=== PATIENT | male | born 1995 | race Caucasian/White ===

== ENCOUNTER 2019-04-19 20:31 | Inpatient (IN) | payer OTHER ==
[~2019-04-19] VITALS: Ht 165.1 cm; Wt 43.0 kg
[2019-04-19 21:14] LABS: HEMATOCRIT 41.1 % (42.0-52.0); HEMOGLOBIN 14.3 g/dl (13.5-17.5); MEAN CORPUSCULAR HEMOGLOBIN 29.9 pg (27.0-33.0); MEAN CORPUSCULAR HGB CONC 34.8 g/dl (32.0-36.5); PLATELET COUNT, AUTOMATED 266 10^3/uL (150-450); RED BLOOD COUNT 4.78 10^6/uL (4.30-6.10); WHITE BLOOD COUNT 7.8 10^3/uL (4.0-10.0)
[2019-04-19 21:56] LABS: ACETAMINOPHEN LEVEL < 2.0 UG/ML (10.0-30.0); ALBUMIN 3.7 GM/DL (3.2-5.2); ALT/SGPT 19 U/L (12-78); BILIRUBIN,DIRECT 0.2 MG/DL (0.0-0.2); BILIRUBIN,TOTAL 0.6 MG/DL (0.2-1.0); BLOOD UREA NITROGEN 17 MG/DL (7-18); CARBON DIOXIDE LEVEL 30 MEQ/L (21-32); CHLORIDE LEVEL 105 MEQ/L (98-107); CREATININE FOR GFR 0.98 MG/DL (0.70-1.30); ETHYL ALCOHOL (ETHANOL) < 0.003 % (0.000-0.010); GLOMERULAR FILTRATION RATE > 60.0 (>60); GLUCOSE, FASTING 106 MG/DL (70-100); POTASSIUM SERUM 3.4 MEQ/L (3.5-5.1); SODIUM LEVEL 139 MEQ/L (136-145); THYROID STIMULATING HORMONE 0.824 uIU/ML (0.358-3.740); TOTAL PROTEIN 7.4 GM/DL (6.4-8.2)
[2019-04-19 22:31] LABS: AMPHETAMINES LEVEL URINE NEGATIVE (NEGATIVE); BARBITURATES URINE NEGATIVE (NEGATIVE); BENZODIAZEPINES URINE NEGATIVE (NEGATIVE); CANNABINOIDS URINE POSITIVE (NEGATIVE); COCAINE METABOLITE URINE NEGATIVE (NEGATIVE); METHADONE URINE NEGATIVE (NEGATIVE); OPIATES URINE NEGATIVE (NEGATIVE); PHENCYCLIDINE URINE NEGATIVE (NEGATIVE)
[2019-04-19] MEDS ORDERED: ACETAMINOPHEN TAB 650MG DOSE (2X325MG) PO PRN (23:30)
[2019-04-19] MEDS ORDERED: MOM 30ML SUSPENSION UDC PO PRN (23:30)
[2019-04-19] MEDS ORDERED: MAALOX 30 ML SUSP *UDC PO PRN (23:30)
[2019-04-19 23:56] VITALS: BP 116/55
[2019-04-20 06:51] VITALS: BP 124/76
[2019-04-20] MEDS: NICOTINE 21MG/24HR 1 EA TRANSDERMAL TD SCH (09:01)
[2019-04-20] MEDS: OSELTAMIVIR PHOSPHATE 75 MG CAP (TAMIFLU) PO SCH (13:23)
--- NOTE | 2019-04-20 14:21 | HPEPDOC ---
General Date of Admission Apr 19, 2019 at 23:19 Date of Service: Apr 19, 2019 Chief Complaint The patient is a 24-year-old male admitted with a reason for visit of Unspecified Depressive D/O. 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 i am seeing the patient for medical history and physical. He says he missed his flu shot this year so would like a prophylaxis. Denies any cough or phlegm, denies any fever or chills, denies any sorethroat. Home Medications No Active Prescriptions or Reported Meds Allergies Coded Allergies: No Known Allergies (Unverified , 04/19/19) Past Medical History Medical History none Surgical History wisdom tooth removal Family History no medical history discussed with the patient. Social History * Smoker: current smoker Alcohol: occationally Drugs: marijuana A-FIB/CHADSVASC A-FIB History Current/History of A-Fib/PAF?: No Review of Systems Constitutional: Denies: Chills, Fever, Night Sweats Eyes: Denies: Pain, Vision change ENT: Denies: Head Aches, Ear Pain, Dysphagia Skin: Denies: Rash, Lesions, Breakdown Pulmonary: Denies: Dyspnea, Cough Cardiovascular: Denies: Chest Pain, Palpitations, Orthopnea, Paroxysmal Noc. Dyspnea, Lt Headedness Gastrointestinal: Denies: Nausea, Vomiting, Abdominal Pain, Diarrhea Genitourinary: Denies: Dysuria, Frequency, Incontinence, Retention Hematologic: Denies: Bruising, Bleeding Excessively Physical Examination General Exam: Positive: Alert, Cooperative, No Acute Distress, Other (appears malnourished and thin with very small muscle mass. ) Eye Exam: Positive: PERRLA, Conjunctiva & lids normal, EOMI; Negative: Sclera icteric ENT Exam: Positive: Atraumatic, Mucous membr. 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); Negative: Clubbing, Cyanosis, Edema Skin Exam: Positive: Nl turgor and temperature; Negative: Breakdown, Lesion Neuro Exam: Positive: Normal Gait, Normal Speech, Cranial Nerves 3-12 NL, Reflexes 2+ Vital Signs Vital Signs Date Time Temp Pulse Resp B/P (MAP) Pulse Ox O2 Delivery O2 Flow Rate FiO2 04/20/19 11:10 Room Air 04/20/19 06:51 98.2 66 16 124/76 (92) 04/19/19 20:32 99 Laboratory Data Labs 24H Laboratory Tests 2 04/19/19 20:58: Nucleated Red Blood Cells % (auto) 0.0, Anion Gap 4L, Glomerular Filtration Rate > 60.0, Calcium Level 9.0, Total Bilirubin 0.6, Direct Bilirubin 0.2, Aspartate Amino Transf (AST/SGOT) 15, Alanine Aminotransferase (ALT/SGPT) 19, Alkaline Phosphatase 66, Total Protein 7.4, Albumin 3.7, Albumin/Globulin Ratio 1.00, Thyroid Stimulating Hormone (TSH) 0.824, Salicylates Level 2.0L, Acetaminophen Level < 2.0L, Ethyl Alcohol Level < 0.003 04/19/19 21:49: Urine Opiates Screen NEGATIVE, Urine Methadone Screen NEGATIVE, Urine Barbiturates Screen NEGATIVE, Urine Phencyclidine Screen NEGATIVE, Urine Amphetamines Screen NEGATIVE, Urine Benzodiazepines Screen NEGATIVE, Urine Cocaine Metabolite Screen NEGATIVE, Urine Cannabinoids Screen POSITIVEH CBC/BMP Laboratory Tests 04/19/19 20:58 Assessment/Plan 24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 I am seeing the patient for medical history and physical. Psych as per psychiatry Severe Malnutrition with BMI of 15.9 and wasting of small muscles and bitemporal fat loss though albumin remains normal. consider guest services manager referral Flu prophylaxis will start on tamiflu 75 mg daily Plan / VTE VTE Prophylaxis Ordered?: No (freely ambulatory) CRYSTAL RUBIN MD Apr 20, 2019 14:21
[2019-04-20 16:00] VITALS: BP 132/89
[2019-04-20] MEDS ORDERED: LORazepam 1 MG TAB PO ONE (18:30)
--- NOTE | 2019-04-20 20:50 | MHHPE ---
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 He was having suicidal ideations with a plan to shoot himself. The patient said he was going to drive to his friend's house in [place] and shoot himself. His main trigger is that his girlfriend for the past three months broke up with him and she is going to abort his baby tomorrow. The patient states that he and his girlfriend are still seeing each other, but deciding what they were going to do about their relationship, but yesterday she told him that after the she did not want to continue the relationship. He said that is when he started to have suicidal thoughts. He says he really was not suicidal, stating "I was just talking." Apparently, he did write a suicidal letter to his mom. He states that he was feeling depressed and hopeless and helpless, but he states that this had just started since the girlfriend told him that she was breaking up with him. He says in the past he did go to [facility] another time and he was seen for 2-3 months and that was because of another girlfriend that had broken up with him at the time. I am not eliciting any hypomanic or manic-like symptoms, or posttraumatic stress disorder (PTSD), or obsessive compulsive disorder (OCD) symptoms in this patient, or panic-like symptoms. PAST PSYCHIATRIC HISTORY: The patient has never been admitted to a psychiatric unit before. Again, he did have a prior episode of depression and did some outpatient treatment at [facility]. He has never actually made any suicidal attempt. FAMILY HISTORY: He says that he is not aware of any psychiatric problems or suicides in his family. MEDICAL HISTORY: He denies any medical problems. ABUSE HISTORY: He denies any history of any physical or sexual abuse. SUBSTANCE ABUSE: He says that he never had trouble with alcohol but he uses cannabis daily. He says as a matter of fact he has been doing that on purpose because he has wanted to get discharged from the [employer] and apparently this is what will be happening soon. REVIEW OF SYSTEMS: VITAL SIGNS: Blood pressure 124/76, pulse 66, respirations 16. APPEARANCE: He did not appear to be in any apparent distress. NEUROMUSCULAR SYSTEM: The patient's gait is normal and there is no involuntary movement. All other systems appear to be negative. MENTAL STATUS EXAMINATION: This patient is alert and oriented times three. Eye contact is fair. Psychomotor activity is decreased. He is verbally spontaneous. There is no formal thought disorder noted. He says his mood is depressed. Affect is restricted but appropriate to mood. He is not psychotic. He denies suicidal ideations today or homicidal ideations. Concentration is fair. Memory intact. Insight and judgment is poor. DIAGNOSES: 1. Adjustment disorder with depressed mood. 2. Cannabis use disorder. At this point, we will continue to monitor the patient for depressive symptomatology. It appears to be reactive to his situational problems with his girlfriend. We will continue to evaluate. At this point, I do not think that treatment with medications is indicated. We will continue to monitor to confirm continued resolution of suicidal ideation.
[2019-04-21 06:48] VITALS: BP 124/84
[2019-04-21] MEDS ORDERED: INFLUENZA QUADRIVALENT PF VACCINE 0.5ML SYRINGE (90686) IM ONE (09:00)
--- NOTE | 2019-04-21 09:18 | MHIPNPDOC ---
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 The patient said he was going to drive to his friend's house in [place] and shoot himself. His main trigger is that his girlfriend for the past three months broke up with him and she is going to abort his baby tomorrow Interval History Narrative: Patient is met withing the group setting. Engages and talks about his situation reporting that his depression is improving. Affective: Patient reports improved depression, less situational worries. Psychotic: Denies any symptoms at this time. Anxiety: Reports some anxiety about relational stuff, namely around his girlfriend. Eating and sleeping behaviors: Within normal limits. Group Attendance: Attends at times. Medication Side effects: See ROS below Behavioral problems/significant events overnight: None reported. Staff Report: Generally engages, no behavioral problems. Review Of Systems Denies any physical concerns at this time, not on any current medication. Psychotherapy None on this visit. Vital Signs Reviewed. Mental Status Examination General: Well dressed with good hygiene Speech: Spontaneous and fluid Thought processes: Linear and logical MSK: Smooth and coordinated gait, no signs of tremors or involuntary orofacial movements Thought content: Future orientated Abstract reasoning, and computation: Intact Description of associations: Intact Description of abnormal or psychotic thoughts: Denies any suicidal or homicidal ideation. Denies any auditory or visual hallucinations. Does not appear to be responding to internal stimuli. Does not appear to be endorsing any bizarre or paranoid ideation. Judgment: fair Insight: fair Orientation: Alert and orientated 3 Cognition: Grossly normal Recent and remote memory: Intact Attention span and concentration: Intact Fund of knowledge: Adequate Mood: "okay" Affect: Euthymic with a full range Diagnoses Adjustment disorder with disruption of mood and conduct. Cannabis use disorder, unspecified. Assessment and Plan Adjustment disorder: Patient has been discussed with above medications, still not interested, prefers therapy. Potential discharge tomorrow if continues to improve. Cannabis use disorder: Recommend outpatient addiction. Disposition Discharge tomorrow to chain of command at patient request if continues to be stable. Time Spent 15 minutes Vital Signs Vital Signs Date Time Temp Pulse Resp B/P (MAP) Pulse Ox O2 Delivery O2 Flow Rate FiO2 04/21/19 08:07 Room Air 04/21/19 06:48 97.9 80 16 124/84 (97) 04/19/19 20:32 99 Current Medications Current Medications Medications (Trade) Dose Ordered Sig/Tiffanie Route PRN Reason Start Time Stop Time Status Last Admin Dose Admin Acetaminophen (Tylenol Tab) 650 mg Q6HP PRN PO HEADACHE or DISCOMFORT 04/19/19 23:30 Al Hydrox/Mg Hydrox/Simethicone (Mylanta) 30 ml Q4HP PRN PO HEARTBURN/INDIGESTION 04/19/19 23:30 Home Med (Med Rec Complete!) ASDIRECTED XX 04/19/19 23:30 04/19/19 23:20 DC Magnesium Hydroxide (Milk Of Magnesia) 30 ml DAILYPRN PRN PO CONSTIPATION 04/19/19 23:30 Nicotine (Nicoderm Cq 21mg) 1 patch DAILY TD 04/20/19 09:00 04/20/19 09:01 Oseltamivir Phosphate (Tamiflu) 75 mg DAILY PO 04/20/19 12:45 04/20/19 13:23 Trazodone HCl (Desyrel) 50 mg QHSP PRN PO INSOMNIA 04/19/19 23:30 Allergies Coded Allergies: No Known Allergies (Unverified , 04/19/19) CARLIE PATHAK DO Apr 21, 2019 09:18
[2019-04-21] MEDS: OSELTAMIVIR PHOSPHATE 75 MG CAP (TAMIFLU) PO SCH (10:19)
[2019-04-21] MEDS: NICOTINE 21MG/24HR 1 EA TRANSDERMAL TD SCH (10:19)
[2019-04-21 16:00] VITALS: BP 122/72
[2019-04-21] MEDS: traZODone 50 MG TAB PO PRN (21:42)
[2019-04-22 06:33] VITALS: BP 117/68
--- NOTE | 2019-04-22 08:44 | MHIPNPDOC ---
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 The patient said he was going to drive to his friend's house in [place] and shoot himself. His main trigger is that his girlfriend for the past three months broke up with him and she is going to abort his baby tomorrow Interval History Narrative: The patient is met within the group setting. He has been calling his parents making threats about suicide, although emphatically denies them to us, while jovially smiling. Affective: The patient denies any depressive symptoms at this time. Psychotic: Denies any symptoms at this time. Anxiety: Reports some anxiety about relational stuff, namely around his girlfriend. Eating and sleeping behaviors: Within normal limits. Group Attendance: Attends at times. Medication Side effects: See ROS below Behavioral problems/significant events overnight: As above, patient generally gets into arguments with family and had reportedly made statements. Staff Report: Generally engages, although is uninterested in treatment. Review Of Systems Denies any physical concerns at this time, not on any current medication. Psychotherapy None on this visit. Vital Signs Reviewed. Mental Status Examination General: Well dressed with good hygiene Speech: Spontaneous and fluid Thought processes: Linear and logical MSK: Smooth and coordinated gait, no signs of tremors or involuntary orofacial movements Thought content: Future orientated Abstract reasoning, and computation: Intact Description of associations: Intact Description of abnormal or psychotic thoughts: Denies any suicidal or homicidal ideation. Denies any auditory or visual hallucinations. Does not appear to be responding to internal stimuli. Does not appear to be endorsing any bizarre or paranoid ideation. Judgment: fair Insight: fair Orientation: Alert and orientated 3 Cognition: Grossly normal Recent and remote memory: Intact Attention span and concentration: Intact Fund of knowledge: Adequate Mood: "okay" Affect: Euthymic with a full range Diagnoses Adjustment disorder with disruption of mood and conduct. Cannabis use disorder, unspecified. Assessment and Plan Adjustment disorder: Patient prefers therapy only. Cluster B personality traits: Likely engages in superficial threatening behavior, as staff has overheard some of his calls, discussed with the patient about need to not engage in this unless he is actually feeling this way. Patient emphatically denies suicidality, although appears to be engaged in this whenever he is upset with family members. We will likely recommend that he be continued in the [place] on observation once he leaves. Disposition The patient will be discharged to [facility] once [facility], he will likely end up with several more days of observation, which will be ideal in the setting, although we are certain that this is superficial attention seeking behavior for the patient, further observation will let us understand the situation better. Time Spent 15 minutes. Vital Signs Vital Signs Date Time Temp Pulse Resp B/P (MAP) Pulse Ox O2 Delivery O2 Flow Rate FiO2 04/22/19 06:33 97.6 75 16 117/68 (84) 04/21/19 08:07 Room Air 04/19/19 20:32 99 Current Medications Current Medications Medications (Trade) Dose Ordered Sig/Tiffanie Route PRN Reason Start Time Stop Time Status Last Admin Dose Admin Acetaminophen (Tylenol Tab) 650 mg Q6HP PRN PO HEADACHE or DISCOMFORT 04/19/19 23:30 Al Hydrox/Mg Hydrox/Simethicone (Mylanta) 30 ml Q4HP PRN PO HEARTBURN/INDIGESTION 04/19/19 23:30 Home Med (Med Rec Complete!) ASDIRECTED XX 04/19/19 23:30 04/19/19 23:20 DC Magnesium Hydroxide (Milk Of Magnesia) 30 ml DAILYPRN PRN PO CONSTIPATION 04/19/19 23:30 Nicotine (Nicoderm Cq 21mg) 1 patch DAILY TD 04/20/19 09:00 04/21/19 10:19 Oseltamivir Phosphate (Tamiflu) 75 mg DAILY PO 04/20/19 12:45 04/21/19 10:19 Trazodone HCl (Desyrel) 50 mg QHSP PRN PO INSOMNIA 04/19/19 23:30 04/21/19 21:42 Allergies Coded Allergies: No Known Allergies (Unverified , 04/19/19) CARLIE PATHAK DO Apr 22, 2019 08:44
[2019-04-22] MEDS: OSELTAMIVIR PHOSPHATE 75 MG CAP (TAMIFLU) PO SCH (09:17)
[2019-04-22] MEDS: NICOTINE 21MG/24HR 1 EA TRANSDERMAL TD SCH (09:17)
[2019-04-22 17:54] VITALS: BP 137/86
[2019-04-22] MEDS ORDERED: LORazepam 1 MG TAB PO ONE (19:00)
[2019-04-22] MEDS: traZODone 50 MG TAB PO PRN (21:28)
[2019-04-23 06:22] VITALS: BP 110/54
[2019-04-23] MEDS: OSELTAMIVIR PHOSPHATE 75 MG CAP (TAMIFLU) PO SCH (08:34)
[2019-04-23] MEDS: NICOTINE 21MG/24HR 1 EA TRANSDERMAL TD SCH (08:36)
--- NOTE | 2019-04-23 09:12 | MHIPNPDOC ---
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 The patient said he was going to drive to his friend's house in [place] and shoot himself. His main trigger is that his girlfriend for the past three months broke up with him and she is going to abort his baby tomorrow Interval History Narrative: The patient is met with solo. He wishes to stay longer to "talk to more people" Affective: reports some low mood and mild depression Psychotic: Denies any symptoms at this time. Anxiety: Reports some anxiety about relational stuff, namely around his girlfriend. Eating and sleeping behaviors: Within normal limits. Group Attendance: Attends at times. Medication Side effects: See ROS below Behavioral problems/significant events overnight: none Staff Report: Generally engages, more interested in treatment Review Of Systems Denies any physical concerns at this time, not on any current medication. Psychotherapy None on this visit. Vital Signs Reviewed. Mental Status Examination General: Well dressed with good hygiene Speech: Spontaneous and fluid Thought processes: Linear and logical MSK: Smooth and coordinated gait, no signs of tremors or involuntary orofacial movements Thought content: Future orientated Abstract reasoning, and computation: Intact Description of associations: Intact Description of abnormal or psychotic thoughts: Denies any suicidal or homicidal ideation. Denies any auditory or visual hallucinations. Does not appear to be responding to internal stimuli. Does not appear to be endorsing any bizarre or paranoid ideation. Judgment: fair Insight: fair Orientation: Alert and orientated 3 Cognition: Grossly normal Recent and remote memory: Intact Attention span and concentration: Intact Fund of knowledge: Adequate Mood: "okay" Affect: Euthymic with a full range Diagnoses Adjustment disorder with disruption of mood and conduct. Cannabis use disorder, unspecified. Assessment and Plan Adjustment disorder: Patient prefers therapy only. Cluster B personality traits: Likely engages in superficial threatening behavior, as staff has overheard some of his calls, discussed with the patient about need to not engage in this unless he is actually feeling this way. Patient emphatically denies suicidality, although appears to be engaged in this whenever he is upset with family members. We will likely recommend that he be continued in the barracks on observation once he leaves. Disposition The patient will be discharged [facility], he will likely end up with several more days of observation, which will be ideal in the setting, although we are certain that this is superficial attention seeking behavior for the patient, further observation will let us understand the situation better. Time Spent 15 minutes. Vital Signs Vital Signs Date Time Temp Pulse Resp B/P (MAP) Pulse Ox O2 Delivery O2 Flow Rate FiO2 04/23/19 08:07 Room Air 04/23/19 06:22 97.9 59 18 110/54 (72) 04/19/19 20:32 99 Current Medications Current Medications Medications (Trade) Dose Ordered Sig/Tifafnie Route PRN Reason Start Time Stop Time Status Last Admin Dose Admin Acetaminophen (Tylenol Tab) 650 mg Q6HP PRN PO HEADACHE or DISCOMFORT 04/19/19 23:30 Al Hydrox/Mg Hydrox/Simethicone (Mylanta) 30 ml Q4HP PRN PO HEARTBURN/INDIGESTION 04/19/19 23:30 Home Med (Med Rec Complete!) ASDIRECTED XX 04/19/19 23:30 04/19/19 23:20 DC Magnesium Hydroxide (Milk Of Magnesia) 30 ml DAILYPRN PRN PO CONSTIPATION 04/19/19 23:30 Nicotine (Nicoderm Cq 21mg) 1 patch DAILY TD 04/20/19 09:00 04/23/19 08:36 Oseltamivir Phosphate (Tamiflu) 75 mg DAILY PO 04/20/19 12:45 04/23/19 08:34 Trazodone HCl (Desyrel) 50 mg QHSP PRN PO INSOMNIA 04/19/19 23:30 04/22/19 21:28 Allergies Coded Allergies: No Known Allergies (Unverified , 04/19/19) CARLIE PATHAK DO Apr 23, 2019 09:12
[2019-04-23 16:00] VITALS: BP 136/83
[2019-04-23] MEDS: traZODone 50 MG TAB PO PRN (20:17)
[2019-04-24 06:38] VITALS: BP 122/72
[2019-04-24] MEDS: NICOTINE 21MG/24HR 1 EA TRANSDERMAL TD SCH (08:29)
[2019-04-24] MEDS: OSELTAMIVIR PHOSPHATE 75 MG CAP (TAMIFLU) PO SCH (08:29)
[2019-04-24 16:13] VITALS: BP 139/81
[2019-04-24] MEDS: traZODone 50 MG TAB PO PRN (20:47)
[2019-04-25 06:35] VITALS: BP 122/67
[2019-04-25] MEDS: NICOTINE 21MG/24HR 1 EA TRANSDERMAL TD SCH (08:30)
[2019-04-25] MEDS: OSELTAMIVIR PHOSPHATE 75 MG CAP (TAMIFLU) PO SCH (08:30)
[2019-04-25] MEDS ORDERED: LORazepam 1 MG TAB PO ONE (15:15)
[2019-04-25 16:08] VITALS: BP 117/70
[2019-04-25] MEDS: traZODone 50 MG TAB PO PRN (20:11)
[2019-04-26 06:32] VITALS: BP 99/56
[2019-04-26] MEDS: OSELTAMIVIR PHOSPHATE 75 MG CAP (TAMIFLU) PO SCH (08:43)
[2019-04-26] MEDS: NICOTINE 21MG/24HR 1 EA TRANSDERMAL TD SCH (08:44)
--- NOTE | 2019-04-26 10:27 | MHDSPDOC ---
[facility] Discharge Summary Discharge Summary DATE OF ADMISSION: Apr 19, 2019 at 23:19 DATE OF DISCHARGE: 04/26/19 Discharge Sherwin Arana MRN: N/A Date of : N/A Date of Service: 04/26/2019 Diagnoses Adjustment disorder with disruption of mood and conduct. Cannabis use disorder, unspecified. 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 The patient said he was going to drive to his friend's house in [place] and shoot himself. His main trigger is that his girlfriend for the past three months broke up with him and she is going to abort his baby tomorrow Consultants Involved Hospitalist/PCP screening Treatment and Progress On The Unit The patient was admitted to the inpatient unit. He generally did well, although was minimally invested. He had been denying suicidal and homicidal ideation. However, when he would get into arguments with his grandmother or mother, he would make suicidal statements. He was observed for additionally another weekend at his request on a voluntary. After discussion about medications and therapy, the patient elected to try therapy only. He did well on the unit and progressed after attending groups more frequently. He had no major behavioral problems and generally became more interested in treatment after the weekend. 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 The patient at the time of discharge did not meet criteria for involuntary admission/extension due to having a normal mental status exam, fair insight into the situation, They are engaged in the discharge process, as well as being friendly and amenable in behavioral control and havent been engaging in any observed concerning behavior or ideation recently. They decline voluntary extension/admission at this time and must be discharged in [facility], as Im unable to make a case for holding the patient against their will. They may have historical risk factors of admissions and other interactions with psychiatry however, those are not modifiable from a clinical perspective. The patient will need to be discharged in [facility]. Mental Status Examination General: Well dressed with good hygiene Speech: Spontaneous and fluid Thought processes: Linear and logical MSK: Smooth and coordinated gait, no signs of tremors or involuntary orofacial movements Thought content: Future orientated Abstract reasoning, and computation: Intact Description of associations: Intact Description of abnormal or psychotic thoughts: Denies any suicidal or homicidal ideation. Denies any auditory or visual hallucinations. Does not appear to be responding to internal stimuli. Does not appear to be endorsing any bizarre or paranoid ideation. Judgment: fair Insight: fair Orientation: Alert and orientated 3 Cognition: Grossly normal Recent and remote memory: Intact Attention span and concentration: Intact Fund of knowledge: Adequate Mood: "okay" Affect: Euthymic with a full range Follow Up The social work team worked during the predischarge meeting in order to evaluate for further issues of lethality address them fully before discharge. They worked on safety planning with the patient's family members in order to ensure that the patient will have a safe and effective discharge. Time Spent The amount of time spent in the coordination of care for this patient was approximately 50 minutes. Friday Vital Signs/I&Os Vital Signs Date Time Temp Pulse Resp B/P (MAP) Pulse Ox O2 Delivery O2 Flow Rate FiO2 04/26/19 06:32 99.3 56 16 99/56 (70) Room Air Medications Scheduled Nicotine (Nicotine Patch) 21 Mg Patch.td24, 1 PATCH TD DAILY for tobacco for 30 Days, #30 Allergies Coded Allergies: No Known Allergies (Unverified , 04/19/19) CARLIE PATHAK DO Apr 26, 2019 10:27
[2019-04-26] MEDS ORDERED: NICO21PAT TD (11:12)
== END 2019-04-26 14:05 | disposition home or self-care (01) | DRG 882 ==
LOC: M ED 20:31 → M ED INP 23:19 → M PSY 04-20 00:08
PROVIDERS: ADMIT Psychiatry & Neurology Psychiatry; ATTEND Psychiatry & Neurology Addiction Medicine
DX: F43.25 Adjustment disorder with mixed disturbance of emotions and conduct (principal); E43 Unspecified severe protein-calorie malnutrition; F12.10 Cannabis abuse, uncomplicated; Z63.0 Problems in relationship with spouse or partner; F17.200 Nicotine dependence, unspecified, uncomplicated